=== PATIENT | male | born 1955 | race Caucasian/White ===

== ENCOUNTER 2018-03-09 20:15 | Emergency (ER) | payer OTHER, SELFPAY ==
[2018-03-09 20:15] VITALS: BP 161/93; PULSE 62; RESP 14; TEMP 36.8; O2SAT 96; BMI 34.8
--- NOTE | 2018-03-09 20:23 | ED.RN ---
ADVISED PT, THE NURSE WAS IN WITH A CRITICAL PT AND WOULD BE DELAYED. PT STATED THAT IT WAS NOT A PROBLEM AND HE UNDERSTOOD THE DELAY
--- NOTE | 2018-03-09 20:41 | ED.DCSUM_ITS ---
- ER Visit Summary Date of Service: 03/09/18 Chief Complaint: Atraumatic right knee pain History of Present Illness: The patient is a 63 M last 2 weeks intermittently has right knee will be painful and lock up. He denies any significant swelling. No redness or fever. No trauma. Tonight he was lying on his garage floor working on his tractor when he went to move his right knee had an had worsening pain on the lateral aspect of his right knee. Again denies any type of trauma. No prior knee surgery. Denies other complaints. Pain is worse with weightbearing. Physical Examination: Middle-aged male. No acute distress. Vital signs are stable afebrile. HEENT exam unremarkable. Lungs clear to auscultation bilaterally. Heart regular rhythm no murmur. Abdomen soft nontender. He is moving all 4 extremities. They are neurovascularly intact. Right hip, ankle and foot are nontender neurovascular intact with full range of motion. He is a strong DP pulse. Dorsi and plantar flexion are intact in his right foot and ankle. His right knee he has it extended at 180 degrees. There is no swelling. No effusion. He is able to flex and extend the right knee. The ACL, PCL, MCL and LCL appear to be intact. He has right lateral joint line tenderness. There is no effusion or swelling. No redness or warmth. The quadriceps and infrapatellar tendons are also intact. He can lift his heel off the bed. Neurologically is awake alert with no focal motor deficits. Test Results: Right knee x-ray shows no acute abnormality. There does appear to be either a noncalcified portion of his patella or possibly an old patella fracture but the patient has no history of that. His patella is completely nontender nonswollen. Patient, myself and his discussed his x-ray results. Emergency Department Course and Treatment: Patient's history and exam is consistent with a possible right lateral meniscal tear. He will need follow-up with orthopedics. He has seen Dr. Tom Estrella in the past. Treatment Plan: Ice and elevate. Motrin for pain and inflammation. Call and follow-up with orthopedic physician. Disposition: Discharge Impression: Acute right knee pain Rule out right lateral meniscal tear This note was generated with [employer] software. It may contain incorrect words, spelling, and punctuation that were not noted in review of the chart prior to signing ED Disposition - Plan for ED Patient: Chief Complaint: Lower Extremity Injury Referrals: Paulo Zapata MD [Primary Care Provider] -
--- NOTE | 2018-03-09 20:45 | RAD_ITS ---
STUDY: X-RAY - RIGHT KNEE REASON FOR EXAM: Male, 63 years old. Right knee pain TECHNIQUE: 3 view(s) of the knee. COMPARISON: None. FINDINGS: Normal visualized distal femur. Normal visualized proximal tibia and fibula. Normal proximal tibiofibular articulation. Normal medial femorotibial compartment. 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 There is mild degenerative arthrosis of the patellofemoral articulation. There is no demonstrated joint effusion. Glenys-Stieda is noted The soft tissue structures are unremarkable. RAD/Knee 3 Views IMPRESSION: No acute findings Electronically Signed: Antelmo Morales DO at 21:13 EDT Tel , Service support ,
--- NOTE | 2018-03-09 21:01 | ED.DEP ---
ED Disposition - Plan for ED Patient: Disposition: Home or Assisted Living Chief Complaint: Lower Extremity Injury Instructions: ED Knee Pain [facility] Referrals: Tom Estrella DO [STAFF PHYSICIAN] - As soon as possible Additional Instructions: Ice and elevate. Motrin for pain and inflammation. Call and follow-up with Dr. Tom Estrella for further evaluation. This may be a right lateral meniscal tear versus other causes of the pain.
[2018-03-09 21:12] VITALS: BP 151/90; PULSE 85; RESP 16; O2SAT 99
== END 2018-03-09 21:22 | disposition home or self-care (01) ==
PROVIDERS: Emergency Provider Emergency Medicine; Family Provider Family Medicine; PCP Family Medicine
DX: M25.561 Pain in right knee (principal); N40.0 Benign prostatic hyperplasia without lower urinary tract symptoms; Z79.899 Other long term (current) drug therapy
CPT/HCPCS: 73562; 99282

== ENCOUNTER → 2019-07-05 08:03 | Outpatient (CLI) | payer OTHER, SELFPAY ==
--- NOTE | 2019-07-05 08:16 | EKG12_ITS ---
Test Reason : PRE OP Blood Pressure : / mmHG Vent. Rate : 074 BPM Atrial Rate : 074 BPM P-R Int : 168 ms QRS Dur : 118 ms QT Int : 380 ms P-R-T Axes : 048 -12 039 degrees QTc Int : 421 ms Normal sinus rhythm Normal ECG Confirmed by SANJEEV MUHAMMAD, PANCHITO ([id number]), research editor [employer]IT CUEVAS ([id number] on 07/08/2019 11:39:56 AM Referred By: Spike Woods Confirmed By:PANCHITO PACE MD
[2019-07-05 08:25] LABS: Hematocrit 45.5 % (40-54); Hemoglobin 14.9 g/dL (13.0-16.5); Mean Corp Hgb Conc 32.7 g/dL (32-36); Mean Corpuscular Hgb 28.9 pg (27.0-32.0); Mean Corpuscular Volume 88.2 fL (80-94); Mean Platelet Vol. 10.1 fl (6.2-12.0); Platelet Count 196 K/mm3 (150-450); RBC Distribution Width CV 13.2 % (11.6-14.6); RBC Distribution Width SD 42.8 fl (35.1-43.9); Red Blood Count 5.16 M/mm3 (4.6-6.2); White Blood Count 5.9 K/mm3 (4.4-11.0)
[2019-07-05 08:45] LABS: Anion Gap 9 (5-15); BUN 23 mg/dL (7-18); BUN/Creat Ratio 18.3 RATIO (10-20); Calcium,Total 9.6 mg/dL (8.5-10.1); Chloride 106 mmol/L (98-107); Creatinine, Serum 1.26 mg/dL (0.70-1.30); EST Glomerular Filtration Rate 61 mL/min (>60); Est Glom Filt Rate - Afr Amer 74 mL/min (>60); Glucose 145 mg/dL (74-106); Potassium 4.1 mmol/L (3.5-5.1); Sodium Level 140 mmol/L (136-145)
== END ==
LOC: LAB 08:07
PROVIDERS: PCP Family Medicine; Referring Provider Physician Assistant; Visit Provider Physician Assistant
DX: Z01.818 Encounter for other preprocedural examination (principal); Z01.810 Encounter for preprocedural cardiovascular examination
CPT/HCPCS: 36415; 80048; 85027; 93005